=== PATIENT | female | born 1955 | race Caucasian/White ===

== ENCOUNTER 2017-08-25 19:18 | Inpatient (IN) ==
[2017-08-25 22:30] LABS: ABG Base Excess 10.4 MMOL/L (-2.5-2.5); ABG HCO3 38.7 MMOL/L (20-26); ABG Oxygen Saturation 94.1 % (95-100); ABG PH 7.318 (7.35-7.45); ABG PO2 77.4 MM HG (80-95); Allen Test Positive; Pt O2 Delivery Device BIPAP
[2017-08-25 22:32] LABS: ABG PCO2 77.1 MM HG (35-48)
[2017-08-25] MEDS ORDERED: ALBUTEROL 2.5 MG/3 ML NEB RESP TX PRN (22:46)
[2017-08-25] MEDS ORDERED: MORPHINE 2 MG/1 ML SYRINGE IV PRN (22:46)
[2017-08-25] MEDS ORDERED: FUROSEMIDE 40 MG/4 ML VIAL IV ONE (22:55)
[2017-08-25 23:18] LABS: Basophils % 0.3 % (0.0-0.8); Eosinophils # 0.1 10*3/uL (0.0-0.87); Eosinophils % 1.1 % (0.00-10.9); Hematocrit 26.8 VOL% (35.7-47.0); Hemoglobin 8.7 GM/DL (12.0-16.0); Immature Granulocytes % 0.4 %; Immature Granulocytes Absolute 0.04 #; Lymphocytes # 1.4 10*3/uL (1.4-4.0); Lymphocytes % 14.3 % (21.3-54.2); Mean Corpuscular HGB Conc 32.5 GM/DL (32-36); Mean Corpuscular Hemoglobin 31 PG (27-34); Mean Corpuscular Volume 96.8 FL (87-102); Mean Platelet Volume 10.7 FL (9.6-12.0); Monocytes # 1.1 10*3/uL (0.11-0.8); Monocytes % 11.4 % (1.7-12.7); Neutrophils # 6.9 10*3/uL (1.4-7.4); Neutrophils % 72.5 % (38.7-73.9); Platelet Count 291 T/CUMM (130-400); Red Blood Count 2.77 MC/CUMM (3.8-5.5); Red Cell Distribution Width 15.3 % (9.3-17.3); White Blood Count 9.5 T/CUMM (4-12)
[2017-08-25 23:47] LABS: Lactic Acid 0.6 MMOL/L (0.4-2.0)
[2017-08-25 23:58] LABS: Alanine Aminotransferase 13 U/L (13-56); Albumin 2.4 G/DL (3.4-5.0); Alkaline Phosphatase 99 U/L (45-117); Aspartate Amino Transferase 19 U/L (0-37); Bilirubin,Total < 0.39 MG/DL (0.2-1.0); Blood Urea Nitrogen 85 MG/DL (7-18); Calcium 8.5 MG/DL (8.5-10.1); Glucose 98 MG/DL (74-106); Osmolality,Calculated 295.1 MOS/KG (273-304); Potassium 4.3 MMOL/L (3.5-5.1); Sodium 135 MMOL/L (136-145); Total Protein 7.4 G/DL (6.4-8.3); Troponin I Only < 0.015 NG/ML (0.00-0.045)
[2017-08-26 00:03] LABS: Risk Ratio 4.54; Thyroid Stimulating Hormone 0.224 uIU/ml (0.358-3.74); VLDL CHOLESTEROL 28.4 MG/DL
[2017-08-26] MEDS ORDERED: MEROPENEM 500 MG in SYRINGE 1 EACH IV SCH (00:30)
[2017-08-26] MEDS ORDERED: ALBUTEROL/IPRATROPIUM 3 ML NEB RESP TX PRN (00:52)
[2017-08-26 01:08] LABS: Amorphous Crystals,Urine Occasional /HPF (Few); Apearance,Urine CLOUDY (Clear); Bacteria,Urine Few /HPF (Few); Bilirubin,Urine Negative (Negative); Blood, Urine Large mg/dL (Negative); Glucose,Urine (UA) Negative (Negative); Granular Casts,Urine 3 /LPF (0-1); Ketones,Urine Negative (Negative); Nitrite,Urine Negative (Negative); Protein,Urine 30 MG/DL; RBC,Urine 38 /HPF (0-4); Squamous Epithelial Cell,Urine Occasional /HPF (0-10); Urine Color Yellow (Yellow); Urine Urobilinogen < 2.0 EU/DL (0.2-1.0); WBC,Urine 239 /HPF (0-6)
[2017-08-26] MEDS: SODIUM CHLORIDE 0.9% 1,000 ML IV SCH ×2 (02:02→20:01)
[2017-08-26] MEDS: PANTOPRAZOLE 40 MG VIAL IV SCH ×2 (02:04→22:08)
[2017-08-26] MEDS: ALBUTEROL/IPRATROPIUM 3 ML NEB RESP TX SCH ×4 (02:35→18:00)
[2017-08-26] MEDS ORDERED: DEXTROSE 50% 25 GM/50 ML VIAL IV PRN (04:11)
[2017-08-26] MEDS ORDERED: GLUCAGON 1 MG VIAL IM PRN (04:11)
[2017-08-26 05:03] LABS: Allen Test Positive; Pt O2 Delivery Device BIPAP
[2017-08-26 05:04] LABS: ABG HCO3 38.6 MMOL/L (20-26); ABG Oxygen Saturation 92.9 % (95-100); ABG PH 7.349 (7.35-7.45); ABG PO2 68.8 MM HG (80-95); ABG TCO2 40.8 MMOL/L (23-27)
[2017-08-26 05:11] LABS: ABG PCO2 71.6 MM HG (35-48)
[2017-08-26] MEDS ORDERED: LEVOTHYROXINE 100 MCG VIAL IV SCH (07:00)
[2017-08-26] MEDS: INSULIN REGULAR 100 UNIT/ML SUBCUT SCH ×4 (09:45→22:05)
[2017-08-26] MEDS: FUROSEMIDE 40 MG/4 ML VIAL IV SCH ×2 (09:46→18:11)
[2017-08-26] MEDS: ENOXAPARIN 30 MG/0.3 ML SYRINGE SUBCUT SCH (09:46)
[2017-08-26] MEDS: cefTRIAXone 2,000 MG in SYRINGE 1 EACH IV SCH (10:32)
[2017-08-26 10:40] LABS: Allen Test Positive; Pt O2 Delivery Device BIPAP
[2017-08-26 10:41] LABS: ABG HCO3 32.6 MMOL/L (20-26); ABG Oxygen Saturation 92.2 % (95-100); ABG PCO2 67.6 MM HG (35-48); ABG PH 7.344 (7.35-7.45); ABG PO2 64.5 MM HG (80-95); ABG TCO2 34.1 MMOL/L (23-27)
[2017-08-26 13:45] LABS: ABG Base Excess 7.8 MMOL/L (-2.5-2.5); ABG HCO3 31.6 MMOL/L (20-26); ABG Oxygen Saturation 95.3 % (95-100); ABG PH 7.319 (7.35-7.45); ABG PO2 77.6 MM HG (80-95); ABG TCO2 33.5 MMOL/L (23-27); Allen Test Positive
[2017-08-26 13:49] LABS: ABG PCO2 69.7 MM HG (35-48)
[2017-08-26 15:19] LABS: ABG Base Excess 9.1 MMOL/L (-2.5-2.5); ABG HCO3 32.6 MMOL/L (20-26); ABG Oxygen Saturation 84.5 % (95-100); ABG PCO2 66.9 MM HG (35-48); ABG PH 7.348 (7.35-7.45); ABG PO2 51.3 MM HG (80-95); ABG TCO2 34.1 MMOL/L (23-27); Allen Test Positive
[2017-08-26] MEDS: ZINC OXIDE PASTE 113 GM TUBE TOP SCH (22:08)
[2017-08-27] MEDS: ALBUTEROL/IPRATROPIUM 3 ML NEB RESP TX SCH ×4 (00:54→19:45)
[2017-08-27 02:50] LABS: Basophils % 0.5 % (0.0-0.8); Eosinophils # 0.1 10*3/uL (0.0-0.87); Eosinophils % 2.1 % (0.00-10.9); Hematocrit 26.4 VOL% (35.7-47.0); Hemoglobin 8.4 GM/DL (12.0-16.0); Immature Granulocytes % 0.5 %; Immature Granulocytes Absolute 0.03 #; Lymphocytes # 1.4 10*3/uL (1.4-4.0); Lymphocytes % 21.1 % (21.3-54.2); Mean Corpuscular HGB Conc 31.8 GM/DL (32-36); Mean Corpuscular Hemoglobin 31 PG (27-34); Mean Platelet Volume 10.4 FL (9.6-12.0); Monocytes # 0.8 10*3/uL (0.11-0.8); Monocytes % 12.5 % (1.7-12.7); Neutrophils # 4.2 10*3/uL (1.4-7.4); Neutrophils % 63.3 % (38.7-73.9); Platelet Count 294 T/CUMM (130-400); Red Blood Count 2.75 MC/CUMM (3.8-5.5); Red Cell Distribution Width 15.2 % (9.3-17.3); White Blood Count 6.6 T/CUMM (4-12)
[2017-08-27 05:33] LABS: ABG Base Excess 10.3 MMOL/L (-2.5-2.5); ABG HCO3 37.7 MMOL/L (20-26); ABG Oxygen Saturation 92.2 % (95-100); ABG PH 7.351 (7.35-7.45); ABG PO2 75.5 MM HG (80-95); ABG TCO2 39.8 MMOL/L (23-27)
[2017-08-27 05:41] LABS: Calcium 7.9 MG/DL (8.5-10.1); Osmolality,Calculated 300.7 MOS/KG (273-304); Potassium 3.6 MMOL/L (3.5-5.1)
[2017-08-27 05:57] LABS: ABG PCO2 69.7 MM HG (35-48)
[2017-08-27] MEDS: INSULIN REGULAR 100 UNIT/ML SUBCUT SCH ×4 (07:45→21:36)
[2017-08-27] MEDS: FUROSEMIDE 40 MG/4 ML VIAL IV SCH ×2 (09:22→16:43)
[2017-08-27] MEDS: ZINC OXIDE PASTE 113 GM TUBE TOP SCH ×2 (09:22→21:30)
[2017-08-27] MEDS: ENOXAPARIN 30 MG/0.3 ML SYRINGE SUBCUT SCH (09:22)
[2017-08-27] MEDS: cefTRIAXone 2,000 MG in SYRINGE 1 EACH IV SCH (09:26)
[2017-08-27] MEDS: FLUCONAZOLE INJ 100 MG in IV BAG 1 EACH IV SCH (13:15)
[2017-08-27] MEDS: SODIUM CHLORIDE 0.9% 1,000 ML IV SCH (16:43)
[2017-08-27] MEDS: PANTOPRAZOLE 40 MG VIAL IV SCH (21:45)
[2017-08-28] MEDS: ALBUTEROL/IPRATROPIUM 3 ML NEB RESP TX SCH ×4 (00:40→19:57)
[2017-08-28 05:30] LABS: Basophils % 0.5 % (0.0-0.8); Eosinophils # 0.1 10*3/uL (0.0-0.87); Eosinophils % 2.4 % (0.00-10.9); Hematocrit 29.5 VOL% (35.7-47.0); Hemoglobin 9.4 GM/DL (12.0-16.0); Immature Granulocytes Absolute 0.06 #; Lymphocytes # 1.5 10*3/uL (1.4-4.0); Lymphocytes % 26.8 % (21.3-54.2); Mean Corpuscular HGB Conc 31.9 GM/DL (32-36); Mean Corpuscular Hemoglobin 30 PG (27-34); Mean Corpuscular Volume 95.5 FL (87-102); Mean Platelet Volume 10.5 FL (9.6-12.0); Monocytes # 0.7 10*3/uL (0.11-0.8); Monocytes % 12.3 % (1.7-12.7); Neutrophils # 3.3 10*3/uL (1.4-7.4); Platelet Count 353 T/CUMM (130-400); Red Blood Count 3.09 MC/CUMM (3.8-5.5); Red Cell Distribution Width 15.4 % (9.3-17.3); White Blood Count 5.8 T/CUMM (4-12)
[2017-08-28] MEDS: INSULIN REGULAR 100 UNIT/ML SUBCUT SCH ×3 (09:41→16:24)
[2017-08-28] MEDS: FUROSEMIDE 40 MG/4 ML VIAL IV SCH ×2 (09:43→16:24)
[2017-08-28] MEDS: ENOXAPARIN 30 MG/0.3 ML SYRINGE SUBCUT SCH (09:43)
[2017-08-28] MEDS: ZINC OXIDE PASTE 113 GM TUBE TOP SCH (09:44)
[2017-08-28 09:58] LABS: ABG Base Excess 8.7 MMOL/L (-2.5-2.5); ABG HCO3 32.4 MMOL/L (20-26); ABG Oxygen Saturation 94.6 % (95-100); ABG PH 7.359 (7.35-7.45); ABG PO2 73.2 MM HG (80-95); ABG TCO2 33.3 MMOL/L (23-27)
[2017-08-28 10:32] LABS: Calcium 8.7 MG/DL (8.5-10.1); Osmolality,Calculated 300.7 MOS/KG (273-304); Potassium 3.8 MMOL/L (3.5-5.1)
[2017-08-28] MEDS: SODIUM CHLORIDE 0.9% 1,000 ML IV SCH (12:49)
[2017-08-28] MEDS: cefTRIAXone 2,000 MG in SYRINGE 1 EACH IV SCH (12:55)
[2017-08-28] MEDS: FLUCONAZOLE INJ 100 MG in IV BAG 1 EACH IV SCH (12:59)
[2017-08-28] MEDS: FLUCONAZOLE 100 MG TABLET PO SCH (14:51)
[2017-08-29] MEDS: PANTOPRAZOLE 40 MG VIAL IV SCH (00:08)
[2017-08-29] MEDS: INSULIN REGULAR 100 UNIT/ML SUBCUT SCH ×5 (00:10→20:58)
[2017-08-29] MEDS: ZINC OXIDE PASTE 113 GM TUBE TOP SCH ×3 (00:11→20:58)
[2017-08-29] MEDS: ALBUTEROL/IPRATROPIUM 3 ML NEB RESP TX SCH ×4 (00:38→19:47)
[2017-08-29 03:36] LABS: ABG Base Excess 21.8 MMOL/L (-2.5-2.5); ABG HCO3 46.3 MMOL/L (20-26); ABG Oxygen Saturation 94.5 % (95-100); ABG PCO2 58.2 MM HG (35-48); ABG PH 7.526 (7.35-7.45); ABG PO2 70.9 MM HG (80-95); ABG TCO2 44.2 MMOL/L (23-27); Allen Test Positive; Pt O2 Delivery Device CPAP
[2017-08-29 05:49] LABS: Calcium 8.8 MG/DL (8.5-10.1); Osmolality,Calculated 302.4 MOS/KG (273-304); Potassium 3.5 MMOL/L (3.5-5.1)
[2017-08-29] MEDS ORDERED: cefTRIAXone 1,000 MG in SYRINGE 1 EACH IV ONE (08:11)
[2017-08-29] MEDS: ENOXAPARIN 30 MG/0.3 ML SYRINGE SUBCUT SCH (08:15)
[2017-08-29] MEDS: FLUCONAZOLE 100 MG TABLET PO SCH (08:15)
[2017-08-29] MEDS: FUROSEMIDE 40 MG/4 ML VIAL IV SCH ×2 (08:16→15:40)
[2017-08-29] MEDS: cefTRIAXone 2,000 MG in SYRINGE 1 EACH IV SCH (08:24)
[2017-08-29] MEDS: SODIUM CHLORIDE 0.9% 1,000 ML IV SCH (11:18)
[2017-08-29] MEDS: BUDESONIDE 0.25 MG/2 ML NEB RESP TX SCH (19:51)
[2017-08-29] MEDS: FLUTICASONE 50 MCG NASAL SPRAY 16 GM BOTTLE BOTH NARES SCH (20:55)
[2017-08-29] MEDS: MONTELUKAST 10 MG TABLET PO SCH (20:56)
[2017-08-29] MEDS: PRAMIPEXOLE 0.25 MG TABLET PO SCH (20:56)
[2017-08-29] MEDS: LACTULOSE 20 GM/30 ML UDCUP PO SCH (20:56)
[2017-08-29] MEDS: THEOPHYLLINE ER (24 HR) 200 MG CAPSULE PO SCH (20:57)
[2017-08-30] MEDS: PANTOPRAZOLE 40 MG VIAL IV SCH ×2 (00:10→22:46)
[2017-08-30] MEDS: ALBUTEROL/IPRATROPIUM 3 ML NEB RESP TX SCH ×4 (01:38→19:20)
[2017-08-30 04:39] LABS: Allen Test Positive
[2017-08-30 04:41] LABS: ABG Base Excess 11.6 MMOL/L (-2.5-2.5); ABG HCO3 35.4 MMOL/L (20-26); ABG Oxygen Saturation 96.5 % (95-100); ABG PCO2 68.3 MM HG (35-48); ABG PH 7.369 (7.35-7.45); ABG PO2 82.5 MM HG (80-95); ABG TCO2 36.4 MMOL/L (23-27)
[2017-08-30] MEDS ORDERED: cefTRIAXone 1,000 MG in SYRINGE 1 EACH IV ONE (06:30)
[2017-08-30 06:54] LABS: Calcium 9.1 MG/DL (8.5-10.1); Osmolality,Calculated 301.1 MOS/KG (273-304)
[2017-08-30] MEDS ORDERED: GENTAMICIN 80 MG/2 ML VIAL ONE (07:05)
[2017-08-30] MEDS: LACTATED RINGERS 1,000 ML IV SCH (07:10)
[2017-08-30] MEDS: BUDESONIDE 0.25 MG/2 ML NEB RESP TX SCH (07:10)
[2017-08-30] MEDS: ALBUTEROL 2 MG TABLET PO SCH ×4 (08:05→21:09)
[2017-08-30] MEDS: SODIUM CHLORIDE 0.9% 1,000 ML IV SCH ×2 (08:06→21:11)
[2017-08-30] MEDS: LEVOTHYROXINE 150 MCG TABLET PO SCH ×2 (08:07→09:38)
[2017-08-30] MEDS ORDERED: ONDANSETRON 4 MG/2 ML VIAL ONE (08:21)
[2017-08-30] MEDS ORDERED: PROPOFOL 200 MG/20 ML VIAL IV ONE ×2 (08:21)
[2017-08-30] MEDS ORDERED: SUCCINYLCHOLINE 200 MG/10 ML VIAL ONE (08:21)
[2017-08-30] MEDS ORDERED: fentaNYL 100 MCG/2 ML VIAL ONE (08:21)
[2017-08-30] MEDS ORDERED: SEVOFLURANE 1 UNIT/15 MINUTE INH ONE (08:21)
[2017-08-30] MEDS ORDERED: OLOPATADINE HCL BOTH EYES SCH (09:00)
[2017-08-30] MEDS: INSULIN REGULAR 100 UNIT/ML SUBCUT SCH ×4 (09:37→20:52)
[2017-08-30] MEDS: FLUCONAZOLE 100 MG TABLET PO SCH (09:38)
[2017-08-30] MEDS: ZINC OXIDE PASTE 113 GM TUBE TOP SCH ×2 (09:38→20:52)
[2017-08-30] MEDS: FLUTICASONE 50 MCG NASAL SPRAY 16 GM BOTTLE BOTH NARES SCH ×2 (09:39→20:52)
[2017-08-30] MEDS: LOVASTATIN 20 MG TABLET PO SCH (09:39)
[2017-08-30] MEDS: ENOXAPARIN 30 MG/0.3 ML SYRINGE SUBCUT SCH (09:39)
[2017-08-30] MEDS: FUROSEMIDE 40 MG/4 ML VIAL IV SCH ×2 (09:40→15:13)
[2017-08-30] MEDS: MONTELUKAST 10 MG TABLET PO SCH (09:40)
[2017-08-30] MEDS: THEOPHYLLINE ER (24 HR) 200 MG CAPSULE PO SCH (09:40)
[2017-08-30] MEDS: ONDANSETRON 4 MG/2 ML VIAL IV PRN ×2 (10:48→20:54)
[2017-08-30] MEDS: PRAMIPEXOLE 0.25 MG TABLET PO SCH (20:51)
[2017-08-30] MEDS: LACTULOSE 20 GM/30 ML UDCUP PO SCH (20:51)
[2017-08-31] MEDS: BUDESONIDE 0.25 MG/2 ML NEB RESP TX SCH ×2 (02:20→07:20)
[2017-08-31] MEDS: ALBUTEROL/IPRATROPIUM 3 ML NEB RESP TX SCH ×3 (02:20→13:53)
[2017-08-31] MEDS: ALBUTEROL 2 MG TABLET PO SCH (05:40)
[2017-08-31] MEDS: LEVOTHYROXINE 150 MCG TABLET PO SCH (05:40)
[2017-08-31 06:20] LABS: Calcium 8.9 MG/DL (8.5-10.1); Osmolality,Calculated 296.3 MOS/KG (273-304); Potassium 4.2 MMOL/L (3.5-5.1)
[2017-08-31] MEDS: FLUCONAZOLE 100 MG TABLET PO SCH (08:58)
[2017-08-31] MEDS: THEOPHYLLINE ER (24 HR) 200 MG CAPSULE PO SCH (08:58)
[2017-08-31] MEDS: MONTELUKAST 10 MG TABLET PO SCH (08:58)
[2017-08-31] MEDS: FLUTICASONE 50 MCG NASAL SPRAY 16 GM BOTTLE BOTH NARES SCH (08:59)
[2017-08-31] MEDS: LOVASTATIN 20 MG TABLET PO SCH (08:59)
[2017-08-31] MEDS: ZINC OXIDE PASTE 113 GM TUBE TOP SCH (08:59)
[2017-08-31] MEDS: FUROSEMIDE 40 MG/4 ML VIAL IV SCH (09:00)
[2017-08-31] MEDS: LACTATED RINGERS 1,000 ML IV SCH (09:00)
[2017-08-31] MEDS: ENOXAPARIN 30 MG/0.3 ML SYRINGE SUBCUT SCH (09:01)
[2017-08-31] MEDS: INSULIN REGULAR 100 UNIT/ML SUBCUT SCH ×2 (10:30→13:05)
[2017-08-31 11:46] VITALS: BP 145/64
[2017-09-05] MEDS ORDERED: ERGOCALCIFEROL 50,000 UNIT CAPSULE PO SCH (09:00)
== END 2017-08-31 14:32 | DRG 189 ==
LOC: N.CC 21:15 → SUATTDRO 21:15 → N.TELEN 08-27 22:45
PROVIDERS: ADMIT Internal Medicine Infectious Disease; ATTEND Internal Medicine

== ENCOUNTER 2018-02-17 22:19 | Inpatient (IN) ==
[2018-02-18 02:30] LABS: Basophils # 0.1 10*3/uL (0.0-0.2); Basophils % 0.1 % (0.0-0.8); Hematocrit 22.4 VOL% (35.7-47.0); Immature Granulocytes % 3.4 %; Immature Granulocytes Absolute 1.25 #; Lymphocytes # 0.7 10*3/uL (1.4-4.0); Lymphocytes % 1.8 % (21.3-54.2); Mean Corpuscular HGB Conc 28.6 GM/DL (32-36); Mean Corpuscular Hemoglobin 25 PG (27-34); Mean Corpuscular Volume 86.5 FL (87-102); Mean Platelet Volume 9.6 FL (9.6-12.0); Monocytes # 2.1 10*3/uL (0.11-0.8); Monocytes % 5.7 % (1.7-12.7); NRBC # 0.06 10*3/uL; Neutrophils # 33.2 10*3/uL (1.4-7.4); Platelet Count 538 T/CUMM (130-400); Red Blood Count 2.59 MC/CUMM (3.8-5.5); White Blood Count 37.3 T/CUMM (4-12)
[2018-02-18 02:40] LABS: Hemoglobin 6.4 GM/DL (12.0-16.0)
[2018-02-18 03:06] LABS: Calcium 8.7 MG/DL (8.5-10.1); Osmolality,Calculated 279.1 MOS/KG (273-304); Potassium 3.4 MMOL/L (3.5-5.1); Thyroid Stimulating Hormone 3.89 uIU/ml (0.358-3.74)
[2018-02-18 04:30] LABS: Hematocrit 20.7 VOL% (35.7-47.0)
[2018-02-18 04:33] LABS: Hemoglobin 6.1 GM/DL (12.0-16.0)
[2018-02-18 05:00] LABS: Immunoglobulin A 700 MG/DL (70-400); Immunoglobulin G 1650 MG/DL (700-1600); Immunoglobulin M 59 MG/DL (40-230)
[2018-02-18 05:38] LABS: Band Neutrophils 14 % (0-10); Lymphocytes 2 % (20-55); Segmented Neutrophils 81 % (50-85); Total Cells Counted 100
[2018-02-18 05:39] LABS: Anisocytosis 1+; Hypochromasia 1+; Microcytosis 1+; Platelet Estimate Increased; Polychromasia Slight
[2018-02-18 07:17] LABS: Lactic Acid 2.2 MMOL/L (0.4-2.0)
[2018-02-18 14:12] LABS: Hematocrit 24.4 VOL% (35.7-47.0)
[2018-02-18 14:16] LABS: Hemoglobin 7.6 GM/DL (12.0-16.0)
[2018-02-18 16:50] LABS: ABG Base Excess -2.5 MMOL/L (-2.5-2.5); ABG HCO3 22.4 MMOL/L (20-26); ABG TCO2 21.5 MMOL/L (23-27)
[2018-02-19 04:23] LABS: ABG Base Excess -3.4 MMOL/L (-2.5-2.5); ABG HCO3 21.6 MMOL/L (20-26); ABG Oxygen Saturation 99.6 % (95-100); ABG PCO2 34.7 MM HG (35-48); ABG PH 7.388 (7.35-7.45); ABG TCO2 18.9 MMOL/L (23-27); Allen Test Positive; Pt O2 Delivery Device Ventilator
[2018-02-19 05:09] LABS: Basophils % 0.1 % (0.0-0.8); Hematocrit 31.6 VOL% (35.7-47.0); Hemoglobin 10.1 GM/DL (12.0-16.0); Immature Granulocytes Absolute 0.62 #; Lymphocytes # 1.7 10*3/uL (1.4-4.0); Lymphocytes % 5.6 % (21.3-54.2); Mean Corpuscular Hemoglobin 27 PG (27-34); Mean Corpuscular Volume 84.9 FL (87-102); Mean Platelet Volume 9.4 FL (9.6-12.0); Monocytes # 1.3 10*3/uL (0.11-0.8); Monocytes % 4.3 % (1.7-12.7); NRBC # 0.02 10*3/uL; Neutrophils # 26.9 10*3/uL (1.4-7.4); Platelet Count 472 T/CUMM (130-400); Red Blood Count 3.72 MC/CUMM (3.8-5.5); Red Cell Distribution Width 16.8 % (9.3-17.3); White Blood Count 30.5 T/CUMM (4-12)
[2018-02-19 05:42] LABS: Albumin 1.6 G/DL (3.4-5.0); Bilirubin,Total 0.4 MG/DL (0.2-1.0); Calcium 8.2 MG/DL (8.5-10.1); Osmolality,Calculated 285.7 MOS/KG (273-304); Potassium 3.7 MMOL/L (3.5-5.1); Total Protein 8.2 G/DL (6.4-8.3)
[2018-02-19 06:00] LABS: Band Neutrophils 10 % (0-10); Hypochromasia 1+; Lymphocytes 3 % (20-55); Microcytosis 1+; Segmented Neutrophils 84 % (50-85); Total Cells Counted 100
[2018-02-19 07:40] LABS: Collection Time,Urine 24 HOURS; Total Protein 24 Hr Ur Result 854 MG/24HR (0-149.1); Total Volume,Urine 1400 ML (400-2000)
[2018-02-20 04:20] LABS: ABG Base Excess -3.3 MMOL/L (-2.5-2.5); ABG HCO3 21.7 MMOL/L (20-26); ABG Oxygen Saturation 99.6 % (95-100); ABG PCO2 35.1 MM HG (35-48); ABG PH 7.388 (7.35-7.45); ABG TCO2 19.4 MMOL/L (23-27); Allen Test Positive; Pt O2 Delivery Device Ventilator
[2018-02-20 05:02] LABS: Basophils % 0.2 % (0.0-0.8); Eosinophils % 0.2 % (0.00-10.9); Hematocrit 28.8 VOL% (35.7-47.0); Hemoglobin 9.1 GM/DL (12.0-16.0); Immature Granulocytes % 0.8 %; Immature Granulocytes Absolute 0.11 #; Lymphocytes # 1.5 10*3/uL (1.4-4.0); Lymphocytes % 10.8 % (21.3-54.2); Mean Corpuscular HGB Conc 31.6 GM/DL (32-36); Mean Corpuscular Hemoglobin 27 PG (27-34); Mean Platelet Volume 9.5 FL (9.6-12.0); Monocytes # 0.6 10*3/uL (0.11-0.8); Platelet Count 386 T/CUMM (130-400); Red Blood Count 3.39 MC/CUMM (3.8-5.5); White Blood Count 14.3 T/CUMM (4-12)
[2018-02-20 05:29] LABS: Calcium 8.2 MG/DL (8.5-10.1); Osmolality,Calculated 296.1 MOS/KG (273-304); Potassium 3.4 MMOL/L (3.5-5.1)
[2018-02-20 08:46] LABS: Immunoglobulin A (Chem) 700 MG/DL (70-400); Immunoglobulin G (Chem) 1650 MG/DL (700-1600); Immunoglobulin M (Chem) 59 MG/DL (40-230); Total Protein (Chem) 8.3 G/DL (6.4-8.3)
[2018-02-20 08:47] LABS: 24 Hr Protein (Bench) 854 MG/24HR (0-149.1)
[2018-02-20 10:12] LABS: ABG Base Excess -2.6 MMOL/L (-2.5-2.5); ABG Oxygen Saturation 97.6 % (95-100); ABG PCO2 43.3 MM HG (35-48); ABG PH 7.343 (7.35-7.45); ABG PO2 112.8 MM HG (80-95); ABG TCO2 24.3 MMOL/L (23-27); Allen Test Positive
[2018-02-20 12:11] LABS: Albumin (SPE) 2.5 G/DL (3.2-5.3); Albumin (SPE) Rel % 29.6 %; Alpha 1 (SPE) 0.6 G/DL (0.1-0.4); Alpha 1 (SPE) Rel % 6.6 %; Alpha 2 (SPE) 1.6 G/DL (0.4-1.0); Alpha 2 (SPE) Rel % 19.9 %; Beta (SPE) 1.1 G/DL (0.5-1.1); Beta (SPE) Rel % 13.3 %; Gamma (SPE) 2.5 G/DL (0.7-1.7); Gamma (SPE) Rel % 30.6 %
[2018-02-20 13:32] LABS: ABG Base Excess -3.1 MMOL/L (-2.5-2.5); ABG HCO3 21.9 MMOL/L (20-26); ABG Oxygen Saturation 99.4 % (95-100); ABG PCO2 39.8 MM HG (35-48); ABG PH 7.354 (7.35-7.45); ABG TCO2 20.4 MMOL/L (23-27); Allen Test Positive
[2018-02-21 03:40] LABS: ABG Base Excess -1.5 MMOL/L (-2.5-2.5); ABG HCO3 23.2 MMOL/L (20-26); ABG Oxygen Saturation 96.9 % (95-100); ABG PCO2 35.8 MM HG (35-48); ABG PO2 84.1 MM HG (80-95); ABG TCO2 20.6 MMOL/L (23-27)
[2018-02-21 11:55] LABS: Hematocrit 30.5 VOL% (35.7-47.0); Hemoglobin 9.3 GM/DL (12.0-16.0)
[2018-02-21 17:22] LABS: Calcium 8.7 MG/DL (8.5-10.1)
[2018-02-22 04:22] LABS: Basophils % 0.6 % (0.0-0.8); Eosinophils # 0.2 10*3/uL (0.0-0.87); Eosinophils % 3.3 % (0.00-10.9); Hematocrit 29.6 VOL% (35.7-47.0); Hemoglobin 9.5 GM/DL (12.0-16.0); Immature Granulocytes % 2.1 %; Immature Granulocytes Absolute 0.15 #; Lymphocytes # 1.5 10*3/uL (1.4-4.0); Mean Corpuscular HGB Conc 32.1 GM/DL (32-36); Mean Corpuscular Hemoglobin 27 PG (27-34); Mean Corpuscular Volume 83.9 FL (87-102); Mean Platelet Volume 9.4 FL (9.6-12.0); Monocytes # 0.6 10*3/uL (0.11-0.8); Monocytes % 8.7 % (1.7-12.7); Neutrophils # 4.5 10*3/uL (1.4-7.4); Neutrophils % 64.3 % (38.7-73.9); Platelet Count 286 T/CUMM (130-400); Red Blood Count 3.53 MC/CUMM (3.8-5.5)
[2018-02-22 04:45] LABS: Calcium 8.3 MG/DL (8.5-10.1); Potassium 3.6 MMOL/L (3.5-5.1)
[2018-02-24 04:45] LABS: Calcium 8.8 MG/DL (8.5-10.1); Osmolality,Calculated 280.1 MOS/KG (273-304); Potassium 3.6 MMOL/L (3.5-5.1)
[2018-02-25 08:12] LABS: Calcium 8.3 MG/DL (8.5-10.1); Osmolality,Calculated 283.1 MOS/KG (273-304); Potassium 3.4 MMOL/L (3.5-5.1)
[2018-03-08 12:17] VITALS: BP 139/66
== END 2018-03-08 14:02 | DRG 871 ==
LOC: N.2E 23:41 → SUATTDRO 02-18 01:42 → N.CC 02-18 04:59 → N.2E 02-22 15:45
PROVIDERS: ADMIT Internal Medicine; ATTEND Internal Medicine